=== PATIENT | male | born 1970 | race American Indian/Alaskan Native ===

== ENCOUNTER 2019-06-18 17:36 | Emergency (ER) | payer OTHER ==
[2019-06-18 18:10] VITALS: BP 168/109
--- NOTE | 2019-06-18 18:10 | Event Note ---
ED Screening Note Date of service: 06/18/19 Time: 18:08 ED Screening Note: This is a 49 y.o. M. that presents to the ER with left wrist pain and swelling for 1 day. Denies injury Applying compression and icy hot which improved swelling. This initial assessment/diagnostic orders/clinical plan/treatment(s) is/are subject to change based on patients health status, clinical progression and re- assessment by fellow clinical providers in the ED. Further treatment and workup at subsequent clinical providers discretion. Patient/guardian urged not to elope from the ED as their condition may be serious if not clinically assessed and managed. Initial orders include: XR left wrist
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
--- NOTE | 2019-06-18 19:13 | XRay Report ---
Left wrist, 4 views INDICATION: Pain and swelling FINDINGS: The joint space is maintained. There is no fracture or dislocation. No spurring or arthriti c change. No bone lesion or periostitis. No significant abnormality. May be an old healed fracture of the mid ulnar shaft. IMPRESSION: Negative study Signer Name: Gumaro Parmar MD Signed: 06/18/2019 7:08 PM Workstation Name: [id number]
== END 2019-06-18 19:30 | disposition home or self-care (01) ==
LOC: ED 17:36
DX: M25.532 Pain in left wrist (principal)
CPT/HCPCS: 99283

== ENCOUNTER 2019-07-30 16:21 | Emergency (ER) | payer SELFPAY ==
[2019-07-30 18:18] LABS: Hematocrit 46.1 % (35.5-45.6); Hemoglobin 15.3 gm/dl (11.8-15.2); Mean Corpuscular HGB Conc 33 % (32-34); Mean Corpuscular Volume 95 fl (84-94); Platelet Count 158 K/mm3 (140-440); Red Blood Count 4.86 M/mm3 (3.65-5.03); Red Cell Distribution Width 15.8 % (13.2-15.2)
[2019-07-30 18:19] LABS: Bilirubin,Urine NEG (Negative); Blood,Urine NEG (Negative); Color,Urine Straw (Yellow); Protein,Urine <15 mg/dL mg/dL (Negative); Urobilinogen,Urine < 2.0 mg/dL (<2.0); WBC,Urine < 1.0 /HPF (0.0-6.0)
[2019-07-30 18:35] LABS: Alanine Aminotransferase 18 units/L (7-56); Albumin 4.2 g/dL (3.9-5); BUN/Creatinine Ratio 7; Blood Urea Nitrogen 6 mg/dL (9-20); Calcium 8.8 mg/dL (8.4-10.2); Hemolysis Index 4
--- NOTE | 2019-07-30 19:59 | Emergency Department Report ---
HPI - General Chief Complaint: High BP Time Seen by Provider: 07/30/19 19:14 - HPI HPI: This is a 49-year-old male here report that he has bilateral side Pain and he went to urgent care and was sent to emergency room because his blood pressure was elevated. Patient blood pressure in triage is 161/109 and he denies any history of high blood pressure. He does said he just found out that his mom and dad has a history of high blood pressure. Patient last yearly physical exam was with Dr. Pederson who is his primary care doctor in January 2019 and he said everything was fine and he is never been told that his blood pressure was elevated. He denies any flank pain he said he was playing football the day before and he got hit from both sides and he said since he has been in the emergency room his pain as decreased and he does not require anything for pain medication. Blood pressure remained elevated and he is asymptomatic without any headache, blurred vision, dizziness, chest pain, back pain, shortness of breath. Patient did say that he drinks all call of her day and it could have years from sixpack beer to a fifth of liquor and also drinks about 10 cups of coffee daily. He runs 5-10 miles daily per patient. He said his pain when he came to the emergency room and at urgent care was 6 out of 10 but last night his pain was worse but now he does not have any pain. Denies any fever or chills. Denies any urinary burning, frequency or urgency. Denies any blood in his urine. Pain at the time was achy and throbbing in to both sides and was constant. He denies taking any medication prior to coming to the emergency room. Pain was worse with movement and better with rest. ED Past Medical Hx - Past Medical History Previous Medical History?: Yes - Surgical History Past Surgical History?: Yes Additional Surgical History: Right inquinal hernia repair - Family History Family history: hypertension - Social History Smoking Status: Current Every Day Smoker Substance Use Type: Alcohol (daily), Marijuana Other Social History: Patient exercises 7 days a week to include running 5-10 miles a day and playing football ED Review of Systems ROS: Stated complaint: HIGH BLOOD PRESSURE Other details as noted in HPI Constitutional: denies: chills, fever, weakness Eyes: denies: eye pain, vision change ENT: denies: epistaxis Respiratory: denies: cough, orthopnea, shortness of breath, SOB with exertion, SOB at rest, wheezing Cardiovascular: denies: chest pain, palpitations, dyspnea on exertion, edema, sy ncope Gastrointestinal: denies: abdominal pain, nausea, vomiting Genitourinary: denies: urgency, dysuria, frequency, hematuria, discharge, testicular pain, testicular mass Musculoskeletal: other (patient had pain to both sides). denies: back pain, joint swelling, arthralgia Skin: denies: rash Neurological: denies: headache, weakness, numbness, paresthesias, confusion, abn ormal gait, vertigo Psychiatric: denies: anxiety Physical Exam - Physical Exam Vital Signs: Vital Signs 07/30/19 16:30 Temperature 97.4 F L Pulse Rate 76 Respiratory 20 Rate Blood Pressure 161/109 O2 Sat by Pulse 99 Oximetry Vital Signs 07/30/19 07/30/19 16:30 20:00 Temperature 97.4 F L Pulse Rate 76 76 Respiratory 20 15 Rate Blood Pressure 161/109 Blood Pressure 160/110 [Left] O2 Sat by Pulse 99 100 Oximetry General: This is a 49-year-old male well-nourished well-developed in no acute distress. He is nontoxic in appearance Physical Exam: Head: Normocephalic atraumatic. Mouth: Oral mucosa moist, tongue is normal, uvula is midline, Lungs: Clear to auscultated bilaterally, no rhonchi wheezes or rales. No use of accessory muscles. Neck: Supple, no tracheal deviation. No C-spine tenderness and full range of motion. Negative stridor and negative crepitus. Pearly CV: S1, S2. Regular rate . No audible murmur Abdomen: Nontender to palpate in all quadrants, normal bowel sounds in all quadrants. No distention. Negative bruit, negative organomegaly Eyes: Bilateral pupils equal and reactive to light, conjunctival injection or icterus. Bilateral EOM intact and normal accom Patient with areas 2 Extremity: No cce. + 2 pulses in all extremities, no neurovascular compromise. Mood: Normal mood and behavior Neurological: Normal gait, speech is clear fluid, she is alert and oriented 3, no motor or sensory deficits. GCS 15, Normal strength all extremities and normal reflexes. Negative Romberg and negative pronator drift. No facial drooping. Back: Nontender to palpate to vertebral spine from C-spine to L-spine including sacral area. No paraspinal tenderness and no CVA tenderness. No rash noted. Ablates without any difficulties SKIN: Clean dry and intact no rashes or lesions ED Course Vital Signs 07/30/19 16:30 Temperature 97.4 F L Pulse Rate 76 Respiratory 20 Rate Blood Pressure 161/109 O2 Sat by Pulse 99 Oximetry - Reevaluation(s) Reevaluation #1: 07/30/19 20:44 She did not need anything for pain because he said his pain has resolved. Blood pressure retaken manually and was 160/110 and he remained asymptomatic throughout ED stay. I discussed this case with Dr. Tani Cali and was decided that patient will not be given any medication as this is new onset and he will need to try last modification and also follow up with his primary care physician and 2-3 days. ED Medical Decision Making - Lab Data Result diagrams: 07/30/19 18:08 07/30/19 18:08 Lab Results 07/30/19 07/30/19 07/30/19 Range/Units 18:00 18:08 18:08 WBC 4.7 (4.5-11.0) K/mm3 RBC 4.86 (3.65-5.03) M/mm3 Hgb 15.3 H (11.8-15.2) gm/dl Hct 46.1 H (35.5-45.6) % MCV 95 H (84-94) fl MCH 32 (28-32) pg MCHC 33 (32-34) % RDW 15.8 H (13.2-15.2) % Plt Count 158 (140-440) K/mm3 Sodium 141 (137-145) mmol/L Potassium 3.8 (3.6-5.0) mmol/L Chloride 104.4 (98-107) mmol/L Carbon Dioxide 25 (22-30) mmol/L Anion Gap 15 mmol/L BUN 6 L (9-20) mg/dL Creatinine 0.9 (0.8-1.5) mg/dL Estimated GFR > 60 ml/min BUN/Creatinine Ratio 7 % Glucose 76 (75-100) mg/dL Calcium 8.8 (8.4-10.2) mg/dL Total Bilirubin 0.20 (0.1-1.2) mg/dL AST 22 (5-40) units/L ALT 18 (7-56) units/L Alkaline Phosphatase 91 (35-129) units/L Total Protein 7.2 (6.3-8.2) g/dL Albumin 4.2 (3.9-5) g/dL Albumin/Globulin Ratio 1.4 % Urine Color Straw (Yellow) Urine Turbidity Clear (Clear) Urine pH 6.0 (5.0-7.0) Ur Specific [place] 1.004 (1.003-1.030) Urine Protein <15 mg/dl (Negative) mg/dL Urine Glucose (UA) Neg (Negative) mg/dL Urine Ketones Neg (Negative) mg/dL Urine Blood Neg (Negative) Urine Nitrite Neg (Negative) Urine Bilirubin Neg (Negative) Urine Urobilinogen < 2.0 (<2.0) mg/dL Ur Leukocyte Esterase Neg (Negative) Urine WBC (Auto) < 1.0 (0.0-6.0) /HPF Urine RBC (Auto) 1.0 (0.0-6.0) /HPF - Medical Decision Making Case was discussed with Dr. Tani Cali. This is a 49-year-old male came in with new onset elevated blood pressure without any history of high blood pressure and positive family history of high blood pressure. Patient blood pressure elevated 2 in emergency room and remains asymptomatic. I discussed the patient last on modification to include heavy all call use, heavy caffeine use and tobacco use. Patient labs reviewed and CBC with hemoconcentration otherwise labs stable. I discussed with him that he will need to gradually he sustained from using these substances as they cause elevated blood pressure. Patient BMI is normal and his weight is normal for his age and he exercises daily but he drinks heavily and heavy caffeine intake and I told him that he is at risk for having heart attack, stroke, kidney failure and all of these acute bleed to . I also discussed with them heavy alcohol use can cause liver disease. I will document in discharge instruction patient blood pressure and emergency room and I also instructed him to get a blood pressure machine and take his blood pressure daily and take all results including discharge paperwork to his primary care physician for evaluation. Patient voiced understanding of information given and discharged home in stable condition. Critical care attestation.: If time is entered above; I have spent that time in minutes in the direct care of this critically ill patient, excluding procedure time. ED Disposition Clinical Impression: Elevated blood pressure reading with diagnosis of hypertension, Alcohol abuse, daily use, Nicotine abuse Disposition: DC-01 TO HOME OR SELFCARE Is pt being admited?: No Does the pt Need Aspirin: No Condition: Stable Instructions: Hypertension (ED), DASH Eating Plan (ED), Low Sodium Diet (ED), Abuse of Alcohol (ED), How to Stop Smoking (ED), Nicotine (Into the nose), Self- Care Measures with a Chronic Disease (ED) Additional Instructions: Please follow up with a primary care physician Dr. Pederson call on Thursday to schedule an appointment for management of elevated blood pressure, heavy alcohol and nicotine use and caffeine use. Follow Discharge instruction on lifestyle modification Your blood pressure and emergency room today was 161/109 and 160/110. Please obtain a blood pressure machine and take a blood pressure daily and take to primary care visit with you Please take your discharge instruction paperwork with you to primary care doctor's follow-up visit. If you develop headache, chest pain, shortness of breath, blurred vision, dizziness, nausea and her vomiting, abnormal gait or slurred speech, please return to emergency room [facility]. Continues to exercise and increase your water intake, See discharge instruction on nicotine, alcohol overuse. Referrals: PRIMARY CARE, [Primary Care Provider] - 2-3 Days Forms: Work/School Release Form(ED)
[2019-07-30 20:01] VITALS: BP 160/110
== END 2019-07-30 21:05 | disposition home or self-care (01) ==
LOC: ED 16:21
DX: I10 Essential (primary) hypertension (principal); F17.200 Nicotine dependence, unspecified, uncomplicated; F12.10 Cannabis abuse, uncomplicated
CPT/HCPCS: 36415; 80053; 81001; 85027